=== PATIENT | female | born 1950 | race Caucasian/White ===

== ENCOUNTER 2022-05-21 01:52 | Inpatient (IN) | payer OTHER ==
[~2022-05-21] VITALS: Ht 165.1 cm; Wt 59.0 kg
--- NOTE | 2022-05-21 03:25 | NUR ---
IV LINE ESTABLISHED AT RAC 20G, BLOOD DRAWN AND SENT TO LAB. COVID SWAB DONE, SENT TO LAB
--- NOTE | 2022-05-21 03:26 | NUR ---
PATIENT TAKEN TO CT
--- NOTE | 2022-05-21 03:27 | NUR ---
PT RETURNED TO ER BED [address]
[2022-05-21 03:43] LABS: BASOPHILS % (AUTO) 0.5 % (0.0-2.0); EOSINOPHILS % (AUTO) 1.7 % (0.0-6.0); HEMATOCRIT 37 % (33-45); LYMPHOCYTES # (AUTO) 0.9 K/uL (0.8-4.8); LYMPHOCYTES % (AUTO) 12.6 % (20.0-44.0); MEAN CORPUSCULAR HGB CONC 33 g/dl (31.0-36.0); MEAN CORPUSCULAR VOLUME 95 fL (82-100); MONOCYTES # (AUTO) 0.4 K/uL (0.1-1.30); MONOCYTES % (AUTO) 6.3 % (2.0-12.0); NEUTROPHILS # (AUTO) 5.4 K/uL (1.8-8.9); NEUTROPHILS % (AUTO) 78.9 % (43.0-81.0); PLATELET COUNT (AUTO) 300 K/uL (150-450); RED BLOOD CELL COUNT(AUTO) 3.87 MIL/uL (4.0-5.2); WHITE BLOOD COUNT (AUTO) 6.9 K/uL (4.3-11.0)
[2022-05-21 03:46] LABS: CALCIUM, SERUM 8.8 mg/dL (8.5-10.1); CARBON DIOXIDE 35 mmol/L (21-32); CHLORIDE 105 mmol/L (98-107); CREATININE 0.8 mg/dL (0.6-1.3); GLUCOSE 118 mg/dL (74-106); POTASSIUM 3.1 mmol/L (3.5-5.1); SODIUM SERUM 140 mmol/L (136-145); UREA NITROGEN, BLOOD 20 mg/dL (7-18)
[2022-05-21 03:52] LABS: ALANINE AMINOTRANSFERASE 19 U/L (12-78); ALBUMIN 2.6 g/dL (3.4-5.0); ALKALINE PHOSPHATASE 77 U/L (46-116); ASPARTATE AMINOTRANSFERASE 24 U/L (15-37); BILIRUBIN,DIRECT 0.1 mg/dL (0.0-0.2); BILIRUBIN,TOTAL 0.5 mg/dL (0.2-1.0); TOTAL PROTEIN, SERUM 5.9 g/dL (6.4-8.2)
[2022-05-21] MEDS ORDERED: POTASSIUM CHLORIDE 20 MEQ TAB.PRT.SR PO ONE ×2 (04:44→05:00)
[2022-05-21] MEDS ORDERED: AMOX/CLAVULANATE 875 MG TABLET ONE (04:45)
--- NOTE | 2022-05-21 04:53 | NUR ---
SWALLOW SCREENING DONE AT BEDSIDE, PT FOLLOWS COMMANDS, ABLE TO SWALLOW OWN SECRETIONS, AND A SIP OF WATER WITHOUT COUGHING/GAGGING NOTED.
[2022-05-21] MEDS ORDERED: ACETAMINOPHEN 325 MG TABLET PO PRN (05:00)
[2022-05-21] MEDS ORDERED: hydrALAZINE HCL IV 20 MG VIAL IV PRN (05:00)
[2022-05-21] MEDS: IV NS 0.9% 1,000 ML IV SCH ×2 (05:00→18:32)
[2022-05-21] MEDS ORDERED: ONDANSETRON HCL/PF 4 MG/2 ML VIAL IVP PRN (05:00)
[2022-05-21] MEDS ORDERED: AMOX/CLAVULANATE 875 MG TABLET PO ONE (05:00)
[2022-05-21] MEDS ORDERED: MORPHINE SULFATE INJ 2 MG/ML DISP.SYRIN IV PRN (05:00)
--- NOTE | 2022-05-21 05:02 | NUR ---
MRSA SWAB DONE, SENT TO LAB
--- NOTE | 2022-05-21 05:56 | NUR ---
REPORT GIVEN TO JEFFY KLEIN
[2022-05-21] MEDS ORDERED: LORA-259 PO (06:18)
[2022-05-21] MEDS ORDERED: METR-147 PO (06:18)
[2022-05-21] MEDS ORDERED: BUSP5TAB3 PO (06:18)
[2022-05-21] MEDS ORDERED: RISP0.5T65 PO (06:18)
[2022-05-21] MEDS ORDERED: SACC250C PO (06:18)
[2022-05-21] MEDS ORDERED: CRAN425C6 PO (06:18)
[2022-05-21] MEDS ORDERED: LEVO88TA5 PO (06:18)
[2022-05-21] MEDS ORDERED: MEMA5TAB42 PO (06:18)
[2022-05-21] MEDS ORDERED: MIRT-90 PO (06:18)
[2022-05-21] MEDS ORDERED: SERT50TA PO (06:18)
[2022-05-21] MEDS ORDERED: CHOL200074 PO (06:18)
[2022-05-21] MEDS ORDERED: MELA5TAB PO (06:18)
[2022-05-21 06:28] LABS: THYROID STIMULATING HORMONE 18.943 uIU/mL (0.358-3.74)
--- NOTE | 2022-05-21 07:06 | NUR ---
PATIENT TRANSFERRED UNDER ACLS
[2022-05-21 08:00] VITALS: BP 140/79
--- NOTE | 2022-05-21 08:00 | NUR ---
CREDIT RISK MODELER NOTE PATIENT ADMITTED TO UNIT FROM ED VIA [facility] @ 0700. AMBULATED TO BED FROM [facility] WITH 1 PERSON STANDBY ASSIST. PATIENT A/OX1; EXTREMELY CONFUSED. UNABLE TO CORRECTLY ANSWER INTERVIEW QUESTIONS DUE TO LEVEL OF CONFUSION. IV ACCESS TO RAC INTACT AND PATENT. NO S/SX OF DISTRESS OR PAIN. NO SOB. PATIENT VS STABLE AND WNL. SAFETY MEASURES INTACT WITH BED LOW LOCKED & ALARMED. SIDE RAIL UP AND CALL LIGHT WITHIN REACH. WILL CONT TO MONITOR.
--- NOTE | 2022-05-21 08:28 | NUR ---
PATIENT REFUSED ECHO BARKER PEELER NOTED BY CARE TRANSITION MGR CLARIBEL. PATIENT IS ASLEEP. PER ERNIE XIE, PT IS CONFUSED AND WILL REFUSE STUDY. SHE ADVISED TO DO ECHO IN THE AFTERNOON AFTER GIVING MEDS.
[2022-05-21] MEDS: DOCUSATE SODIUM LIQ 100 MG/10 ML UDC PO SCH ×2 (10:13→17:35)
[2022-05-21] MEDS: POLYETHYLENE GLYCOL 3350 17 GM POWD.PACK PO SCH (10:13)
[2022-05-21] MEDS: HEPARIN SODIUM, PORCINE 5000 UNITS/1 ML VIAL SQ SCH ×2 (10:14→21:04)
[2022-05-21] MEDS: busPIRone 5 MG TABLET PO SCH ×2 (13:00→17:34)
[2022-05-21] MEDS: CHOLECALCIFEROL (VITAMIN D 3) 400 UNIT TABLET PO SCH (13:00)
[2022-05-21] MEDS: risperiDONE 0.25 MG TABLET PO SCH ×2 (13:00→17:34)
[2022-05-21] MEDS: LEVOTHYROXINE SODIUM 100 MCG TABLET PO SCH (13:30)
[2022-05-21 15:14] LABS: BILIRUBIN,URINE 1+ (NEGATIVE); COLOR,URINE YELLOW (YELLOW); LEUKOCYTE ESTERASE ,URINE 2+ (NEGATIVE); NITRITE, URINE NEGATIVE (NEGATIVE); PROTEIN,URINE TRACE mg/dl (NEGATIVE); UGLUCOSE NEGATIVE (NEGATIVE); UROBILINOGEN,URINE 0.2 EU/dL (0.2)
[2022-05-21 15:27] LABS: BACTERIA,URINE Rare /HPF (None Seen); RBC,URINE 0-2 /HPF (0-2); SQUAMOUS EPITHELIAL CELL,UR Rare /HPF (None Seen); URINE AMORPHOUS PHOSPHATES Many /HPF (None Seen); WBC,URINE 0-2 /HPF (0-3)
[2022-05-21 16:00] VITALS: BP 122/71
--- NOTE | 2022-05-21 18:26 | NUR ---
RN CLOSING NOTE PATIENT REMAINED STABLE THROUGHOUT SHIFT. NO CHANGE IN CONDITION PATIENT REMAINS CONFUSED. TOLERATED MEALS AND MEDICATIONS WELL. WILL ENDORSE TO ONCOMING NURSE.
--- NOTE | 2022-05-21 19:25 | NUR ---
RN OPENING NOTE; RECEIVED PT IN BED SLEEPING,ON RM AIR YENNI WELL,BREATHING EVEN AND UNLABORED,NO SIGN SOB/DISTRESS NOTED,IV ACCESS ON RAC 20G,PATEN AND INTACT,SAFETY MEASURE IN PLACE,CALL LIGHT WITHIN REACH,WILL CONTINUE TO MONITOR.
[2022-05-21 20:00] VITALS: BP 124/59
[2022-05-21] MEDS ORDERED: MEMANTINE HCL 5 MG TABLET PO SCH (22:00)
[2022-05-21] MEDS ORDERED: MIRTAZAPINE 15 MG TABLET PO SCH (22:00)
[2022-05-22 06:13] LABS: BASOPHILS # (AUTO) 0.1 K/uL (0.0-0.2); BASOPHILS % (AUTO) 1.3 % (0.0-2.0); EOSINOPHILS % (AUTO) 3.4 % (0.0-6.0); HEMATOCRIT 31 % (33-45); HEMOGLOBIN 10.5 g/dL (11.5-14.8); LYMPHOCYTES % (AUTO) 16.3 % (20.0-44.0); MEAN CORPUSCULAR HGB CONC 33 g/dl (31.0-36.0); MEAN CORPUSCULAR VOLUME 95 fL (82-100); MONOCYTES # (AUTO) 0.6 K/uL (0.1-1.30); MONOCYTES % (AUTO) 9.4 % (2.0-12.0); NEUTROPHILS # (AUTO) 4.2 K/uL (1.8-8.9); NEUTROPHILS % (AUTO) 69.6 % (43.0-81.0); PLATELET COUNT (AUTO) 228 K/uL (150-450); RED BLOOD CELL COUNT(AUTO) 3.31 MIL/uL (4.0-5.2)
--- NOTE | 2022-05-22 06:20 | NUR ---
RN CLOSING NOTE; PATIENT IN BED SLEEPING,AOX1-2 CONFUSED,ON RM AIR YENNI WELL,BREATHING EVEN AND UNLABORED,NO SIGN SOB/DISTRESS NOTED,NO SIGN OF PAIN/DISCOMFORT DURING SHIFT,DUE MEDS GIVEN ORDER,ALL NEEDS ATTENDED,IV ACCESS ON LAC 20G,PATEN AND INTACT,RESTRAIN IN PLACED WITH GOOD CIRCULATION,SAFETY MEASURE IN PLACE,CALL LIGHT WITHIN REACH,WILL ENDORSED TO NEXT NURSE.
[2022-05-22 06:43] LABS: BILIRUBIN,TOTAL 0.3 mg/dL (0.2-1.0); CREATININE 0.8 mg/dL (0.6-1.3); MAGNESIUM 1.9 mg/dL (1.8-2.4); PHOSPHORUS 2.7 mg/dL (2.5-4.9); POTASSIUM 3.2 mmol/L (3.5-5.1); TOTAL PROTEIN, SERUM 4.7 g/dL (6.4-8.2)
--- NOTE | 2022-05-22 07:00 | NUR ---
MS RN OPENING NOTES: RECEIVED PATIENT IN BED AWAKE, ALERT AND ORIENTED X1-2 WITH EPISODES OF CONFUSION NEEDS FREQUENT REORIENTATION. NO SOB OR CARDIAC DISTRESS NOTED ON ROOM AIR AND TOLERATING WELL. DENIES ANY PAIN AT THIS TIME. NOTED WITH IV ACCESS ON RAC GAUGE 20 PATENT,INTACT AND INFUSING IV FLUIDS WELL NS 1L @75ML/HR. SAFETY MEASURES MAINTAINED: BED LOCKED AND IN LOWEST POSITION, SIDE RAILS UP X 2 AND CALL LIGHT IN EASY REACH. WILL MONITOR ACCORDINGLY.
[2022-05-22] MEDS: LEVOTHYROXINE SODIUM 100 MCG TABLET PO SCH (07:16)
[2022-05-22 08:13] VITALS: BP 130/66
[2022-05-22] MEDS: CHOLECALCIFEROL (VITAMIN D 3) 400 UNIT TABLET PO SCH (08:32)
[2022-05-22] MEDS: risperiDONE 0.25 MG TABLET PO SCH (08:32)
[2022-05-22] MEDS: POLYETHYLENE GLYCOL 3350 17 GM POWD.PACK PO SCH (08:32)
[2022-05-22] MEDS: DOCUSATE SODIUM LIQ 100 MG/10 ML UDC PO SCH (08:32)
[2022-05-22] MEDS: busPIRone 5 MG TABLET PO SCH (08:32)
[2022-05-22] MEDS: HEPARIN SODIUM, PORCINE 5000 UNITS/1 ML VIAL SQ SCH (08:33)
[2022-05-22] MEDS ORDERED: SERTRALINE HCL 50 MG TABLET PO SCH (09:00)
[2022-05-22] MEDS ORDERED: IV NS 0.9% 1,000 ML IV PRN (10:00)
[2022-05-22] MEDS: POTASSIUM CHLORIDE 20 MEQ TAB.PRT.SR PO SCH ×3 (10:11→12:04)
[2022-05-22 10:29] LABS: IRON, SERUM 47 ug/dl (50-175); TOTAL IRON BINDING CAPACITY 113 ug/dl (250-450)
[2022-05-22 10:43] LABS: FERRITIN 308 ng/mL (8-388)
[2022-05-22] MEDS ORDERED: LEVO100T PO (12:43)
--- NOTE | 2022-05-22 15:00 | NUR ---
MEDICAL STAFF CREDENTIALING COORDINATOR NOTES: PATIENT WAS DISCHARGE BACK TO [facility], REPORT GIVEN TO GORGE. PATIENT ALERT AND ORIENTED X 1-2 WITH EPISODES OF FORGETFULNESS. DISCHARGE PACKET GIVEN TO LEONARDO () AND VERBALIZED UNDERSTANDING. BELONGINGS CARRIED WITH THE PT. SEAM STEAMER REMOVED HAND IT TO US BOYD. SKIN ISSUES NOTED, PHOTOS TAKEN AND FILED TO PT'S CHART. REMOVED IV ACCESS AND PT WORE HER CLOTHES, NILO JAZZMINE CLEANED PT AND WHEELED IN THE LOBBY. WILL DRIVE THE PT GOING BACK TO SN[facility]. IDENTIFICATION BAND IN PLACE. PT LEFT THE UNIT STABLE.
== END 2022-05-22 15:00 | DRG 155 ==
LOC: ER 02:00 → TELE 06:04 → MED 06:41 → TELE 05-22 14:16
PROVIDERS: ADMIT Nurse Practitioner Acute Care; ATTEND Nurse Practitioner Acute Care
DX: S02.2XXA Fracture of nasal bones, initial encounter for closed fracture (principal); E44.0 Moderate protein-calorie malnutrition; F02.83 Dementia in other diseases classified elsewhere, unspecified severity, with mood disturbance; N17.9 Acute kidney failure, unspecified; W19.XXXA Unspecified fall, initial encounter; Y93.9 Activity, unspecified; Y92.099 Unspecified place in other non-institutional residence as the place of occurrence of the external cause; E03.9 Hypothyroidism, unspecified; E87.6 Hypokalemia; E88.09 Other disorders of plasma-protein metabolism, not elsewhere classified; F32.A Depression, unspecified; G30.9 Alzheimer's disease, unspecified; G72.3 Periodic paralysis; R29.6 Repeated falls; S00.83XA Contusion of other part of head, initial encounter; Z87.891 Personal history of nicotine dependence; Z91.81 History of falling; R55 Syncope and collapse; R79.89 Other specified abnormal findings of blood chemistry
CPT/HCPCS: 36415; 70450-TC; 70486-TC; 71045-TC; 80048-TC; 80053-TC; 80076-TC; 81001; 82728-TC; 82962-TC; 83540-TC; 83735-TC; 84100-TC; 84439-TC; 84443-TC; 84484-TC; 85025-TC; 85730-TC; 87081-TC; 87086-TC; 93307-TC; 97112-TC; 97116-TC; 97530-TC; C9803; G0378; J1644; J7030

== ENCOUNTER 2025-01-13 13:08 | Inpatient (IN) | payer OTHER ==
[~2025-01-13] VITALS: Ht 162.6 cm; Wt 39.5 kg
[~2025-01-13 13:08] MED LIST: BUSP5TAB3 PO; CHOL200074 PO; CRAN425C6 PO; LEVO100T PO; LORA-259 PO; MELA5TAB PO; MEMA5TAB42 PO; METR-147 PO; MIRT-90 PO; RISP0.5T65 PO; SACC250C PO; SERT50TA PO
[2025-01-13 13:37] LABS: PLATELET COUNT (AUTO) 181 K/uL (150-450); RED BLOOD CELL COUNT(AUTO) 3.80 MIL/uL (4.0-5.2); RED CELL DISTRIBUTION WIDTH 13.0 % (11.5-15.0); WHITE BLOOD COUNT (AUTO) 7.7 K/uL (4.3-11.0)
[2025-01-13] MEDS ORDERED: CYAN500T9 PO (13:44)
[2025-01-13] MEDS ORDERED: FERR325T28 PO (13:44)
[2025-01-13] MEDS ORDERED: MULT-235 PO (13:44)
[2025-01-13] MEDS ORDERED: LEVO88TA5 PO (13:44)
[2025-01-13] MEDS ORDERED: QUET50TA PO (13:44)
[2025-01-13] MEDS ORDERED: ASCO-352 PO (13:44)
[2025-01-13] MEDS ORDERED: WHEY227P PO (13:44)
[2025-01-13] MEDS ORDERED: POLY119P3 PO (13:44)
[2025-01-13] MEDS ORDERED: ACET-868 PO (13:44)
[2025-01-13 13:58] LABS: APPEARANCE,URINE CLEAR (CLEAR); BLOOD, URINE NEGATIVE Ery/uL (NEGATIVE); LEUKOCYTE ESTERASE ,URINE 3+ (NEGATIVE); NITRITE, URINE NEGATIVE (NEGATIVE); UGLUCOSE NEGATIVE (NEGATIVE)
[2025-01-13 14:01] LABS: CALCIUM, SERUM 9.6 mg/dL (8.5-10.1); CREATININE 1.0 mg/dL (0.6-1.3); UREA NITROGEN, BLOOD 31 mg/dL (7-18)
[2025-01-13 14:03] LABS: SERUM AMMONIA 14 umol/L (11-32)
[2025-01-13 14:08] LABS: ALCOHOL, BLOOD < 3 mg/dL (0-10); ASPARTATE AMINOTRANSFERASE 23 U/L (15-37); TOTAL PROTEIN, SERUM 7.7 g/dL (6.4-8.2)
[2025-01-13 14:14] LABS: AMPHETAMINE, URINE NEGATIVE (NEGATIVE); BARBITURATE, URINE NEGATIVE (NEGATIVE); BENZODIAZEPINE, URINE NEGATIVE (NEGATIVE); CANNABINOID, URINE NEGATIVE (NEGATIVE); COCCAINE, URINE NEGATIVE (NEGATIVE); OPIATE, URINE NEGATIVE (NEGATIVE)
[2025-01-13 14:15] LABS: SODIUM SERUM 159 mmol/L (136-145)
[2025-01-13] MEDS: IV NS 0.9% 1,000 ML BAG IV ONE ×2 (14:21→14:40)
[2025-01-13] MEDS ORDERED: CEFTRIAXONE 1GM BAG (ER ONLY) 50 ML IV ONE (14:26)
[2025-01-13] MEDS ORDERED: ACETAMINOPHEN 325 MG TABLET PO PRN (14:30)
[2025-01-13] MEDS ORDERED: ONDANSETRON HCL/PF 4 MG/2 ML VIAL IVP PRN (14:30)
[2025-01-13] MEDS ORDERED: Z GUARD REMEDY 4 OZ OINT TP PRN (14:30)
[2025-01-13] MEDS: CEFTRIAXONE 1GM BAG (ER ONLY) 50 ML IV ONE (14:40)
[2025-01-13 15:15] LABS: ADD URINE CULTURE YES
[2025-01-13] MEDS: IV NS 0.9% 1,000 ML IV PRN (15:38)
[2025-01-13] MEDS: CEFTRIAXONE 1 G in IV D5W 50 ML IV SCH (15:54)
[2025-01-13] MEDS: ENOXAPARIN SODIUM 40 MG/0.4 ML DISP.SYRIN SQ SCH (15:57)
[2025-01-13 16:18] VITALS: BP 134/117; TEMP 97.9; O2SAT 100
[2025-01-13 21:33] LABS: CALCIUM, SERUM 8.4 mg/dL (8.5-10.1); CREATININE 0.9 mg/dL (0.6-1.3); SODIUM SERUM 154.0 mmol/L (136-145); UREA NITROGEN, BLOOD 27.0 mg/dL (7-18)
[2025-01-14 02:29] LABS: CALCIUM, SERUM 8.3 mg/dL (8.5-10.1); CREATININE 0.7 mg/dL (0.6-1.3); UREA NITROGEN, BLOOD 27.0 mg/dL (7-18)
[2025-01-14 02:40] LABS: SODIUM SERUM 156.0 mmol/L (136-145)
[2025-01-14] MEDS: IV D5W 1,000 ML IV PRN (04:59)
[2025-01-14] MEDS: POTASSIUM CL. PREMIX PERIPHER. 50 ML IV SCH ×2 (05:17→06:35)
[2025-01-14 06:30] LABS: PLATELET COUNT (AUTO) 159 K/uL (150-450); RED BLOOD CELL COUNT(AUTO) 3.50 MIL/uL (4.0-5.2); RED CELL DISTRIBUTION WIDTH 12.8 % (11.5-15.0); WHITE BLOOD COUNT (AUTO) 7.3 K/uL (4.3-11.0)
[2025-01-14 06:36] LABS: CALCIUM, SERUM 8.4 mg/dL (8.5-10.1); CREATININE 0.9 mg/dL (0.6-1.3); PHOSPHORUS 2.9 mg/dL (2.5-4.9); UREA NITROGEN, BLOOD 22.0 mg/dL (7-18)
[2025-01-14 06:52] LABS: SODIUM SERUM 158.0 mmol/L (136-145)
[2025-01-14 08:00] VITALS: BP 125/109; TEMP 97.5; O2SAT 95
[2025-01-14 10:50] LABS: CALCIUM, SERUM 8.6 mg/dL (8.5-10.1); CREATININE 0.9 mg/dL (0.6-1.3); UREA NITROGEN, BLOOD 21.0 mg/dL (7-18)
[2025-01-14 10:53] LABS: SODIUM SERUM 157.0 mmol/L (136-145)
[2025-01-14 12:00] VITALS: BP 150/85; TEMP 99.5; O2SAT 90
[2025-01-14 16:00] VITALS: BP 125/86; TEMP 99.5; O2SAT 100
[2025-01-14 16:02] LABS: CALCIUM, SERUM 8.2 mg/dL (8.5-10.1); CREATININE 0.7 mg/dL (0.6-1.3); SODIUM SERUM 151.0 mmol/L (136-145); UREA NITROGEN, BLOOD 19.0 mg/dL (7-18)
[2025-01-14 17:13] LABS: OCCULT BLOOD STOOL NEGATIVE (NEGATIVE)
[2025-01-14 20:00] VITALS: BP 144/131; TEMP 99; O2SAT 90
[2025-01-14 20:31] LABS: CALCIUM, SERUM 8.6 mg/dL (8.5-10.1); CREATININE 0.7 mg/dL (0.6-1.3); SODIUM SERUM 145.0 mmol/L (136-145); UREA NITROGEN, BLOOD 15.0 mg/dL (7-18)
[2025-01-15] VITALS: BP 145/105; TEMP 99; O2SAT 100
[2025-01-15 02:57] LABS: CALCIUM, SERUM 8.2 mg/dL (8.5-10.1); CREATININE 0.7 mg/dL (0.6-1.3); SODIUM SERUM 140.0 mmol/L (136-145); UREA NITROGEN, BLOOD 11.0 mg/dL (7-18)
[2025-01-15 04:00] VITALS: BP 123/64; TEMP 99.1; O2SAT 99
[2025-01-15 06:38] LABS: PHOSPHORUS 2.2 mg/dL (2.5-4.9)
[2025-01-15 06:47] LABS: PLATELET COUNT (AUTO) 155 K/uL (150-450); RED BLOOD CELL COUNT(AUTO) 3.56 MIL/uL (4.0-5.2); RED CELL DISTRIBUTION WIDTH 12.4 % (11.5-15.0); WHITE BLOOD COUNT (AUTO) 6.4 K/uL (4.3-11.0)
[2025-01-15 08:00] VITALS: BP 153/89; TEMP 98.8; O2SAT 96
[2025-01-15] MEDS: POTASSIUM PHOSPHATE MM 5 MMOL in IV NS 0.9% 100 ML IV SCH (08:47)
[2025-01-15 08:50] LABS: CALCIUM, SERUM 8.4 mg/dL (8.5-10.1); CREATININE 0.7 mg/dL (0.6-1.3); SODIUM SERUM 139 mmol/L (136-145); UREA NITROGEN, BLOOD 9 mg/dL (7-18)
[2025-01-15 12:00] VITALS: BP 135/71; TEMP 99.3; O2SAT 96
[2025-01-15 14:58] LABS: CALCIUM, SERUM 8.5 mg/dL (8.5-10.1); CREATININE 0.7 mg/dL (0.6-1.3); SODIUM SERUM 137.0 mmol/L (136-145); UREA NITROGEN, BLOOD 9.0 mg/dL (7-18)
[2025-01-15 17:27] VITALS: BP 118/78; TEMP 99.7; O2SAT 96
[2025-01-15 20:00] VITALS: BP 150/130; TEMP 98.8; O2SAT 99
[2025-01-15 22:09] LABS: CALCIUM, SERUM 8.3 mg/dL (8.5-10.1); CREATININE 0.6 mg/dL (0.6-1.3); SODIUM SERUM 137.0 mmol/L (136-145); UREA NITROGEN, BLOOD 10.0 mg/dL (7-18)
[2025-01-15] MEDS ORDERED: ACETAMINOPHEN 325 MG TABLET PO PRN (22:30)
[2025-01-16 04:00] VITALS: BP 184/41; TEMP 98.2; O2SAT 95
[2025-01-16] MEDS: hydrALAZINE HCL IV 20 MG VIAL IV PRN (04:32)
[2025-01-16] MEDS: LEVOTHYROXINE SODIUM 88 MCG TABLET PO SCH (06:57)
[2025-01-16 08:00] VITALS: BP 111/97; TEMP 98.2; O2SAT 93
[2025-01-16] MEDS: QUETIAPINE FUMARATE 25 MG TABLET PO SCH (09:00)
[2025-01-16] MEDS: POLYETHYLENE GLYCOL 3350 17 GM POWD.PACK PO SCH (09:00)
[2025-01-16] MEDS: ENSURE ENLIVE 237 ML LIQUID (VANILLA) PO SCH (09:00)
[2025-01-16] MEDS: ASCORBIC ACID 500 MG TABLET PO SCH (13:00)
[2025-01-16] MEDS: MULTIVITAMINS,THERAGRAN 1 UDTAB TABLET PO SCH (13:01)
[2025-01-16] MEDS: CYANOCOBALAMIN 500 MCG TABLET PO SCH (13:01)
[2025-01-16] MEDS: SERTRALINE HCL 50 MG TABLET PO SCH (13:01)
[2025-01-16] MEDS: FERROUS SULFATE (325 MG) 325 MG/TAB TABLET PO SCH (13:02)
[2025-01-16] MEDS ORDERED: MIRTAZAPINE 15 MG TABLET PO SCH (22:00)
== END 2025-01-16 15:05 | DRG 640 ==
LOC: ER 13:10 → TELE1 14:47 → MEDSG1 01-15 19:57
PROVIDERS: ADMIT Nurse Practitioner Acute Care; ATTEND Internal Medicine
DX: E86.0 Dehydration (principal); G93.41 Metabolic encephalopathy; N39.0 Urinary tract infection, site not specified; N17.9 Acute kidney failure, unspecified; F02.83 Dementia in other diseases classified elsewhere, unspecified severity, with mood disturbance; E87.0 Hyperosmolality and hypernatremia; E03.9 Hypothyroidism, unspecified; E78.5 Hyperlipidemia, unspecified; B96.20 Unspecified Escherichia coli [E. coli] as the cause of diseases classified elsewhere; E86.1 Hypovolemia; E87.6 Hypokalemia; F32.A Depression, unspecified; I10 Essential (primary) hypertension; Z87.891 Personal history of nicotine dependence; G30.9 Alzheimer's disease, unspecified; S30.91XA Unspecified superficial injury of lower back and pelvis, initial encounter; X58.XXXA Exposure to other specified factors, initial encounter; S40.922A Unspecified superficial injury of left upper arm, initial encounter; Y93.9 Activity, unspecified; Y92.89 Other specified places as the place of occurrence of the external cause
CPT/HCPCS: 36415; 70450-TC; 71045-TC; 80048-TC; 80076-TC; 81001; 82140-TC; 82272-TC; 82962-TC; 83735-TC; 84100-TC; 84443-TC; 85025-TC; 87040-TC; 87081-TC; 87086-TC; 87186-TC; 92526; 92611-TC; A4223; G0378; G0480; J0360; J0696; J1650; J3480; J3490; J7030; J7050; J7060; J7070